=== PATIENT | male | born 1980 | race Caucasian/White ===

== ENCOUNTER 2023-07-07 08:07 | Day surgery (SDC) | payer MEDICAID, SELFPAY ==
[2023-07-07] VITALS (10 sets, daily range): BP systolic 121–152; BP diastolic 71–85; PULSE 48–66; RESP 15–23; TEMP 36.1–36.3; O2SAT 92–97; BMI 39.4
[2023-07-07] MEDS: sodium chloride 0.9% 1,000 ML 30 ML IV (08:46)
[2023-07-07] MEDS: acetaminophen 1,000 MG/100 ML PIGGYBACK 400 MG IV (08:47)
[2023-07-07] MEDS: gabapentin 300 mg Capsule PO (08:48)
--- NOTE | 2023-07-07 09:16 | W.PM.OPSUD ---
Surgery/Procedure H&P Update DATE OF PROCEDURE: July 07, 2023 DATE H&P PERFORMED: 07/02/23 CHANGES TO PREVIOUS DOCUMENTATION: No changes PREOP DIAGNOSIS: Right Achilles tendon rupture PLANNED PROCEDURE: Operation Date: 07/07/23 09:40 Proposed Procedures p Right achilles tendon repair 00917,S86.001A(Right) - Tesfaye Mayers DPM
[2023-07-07] MEDS: ceFAZolin 2,000 MG in sodium chloride 0.9% (plus) 50 ML 100 MG IV (09:32)
--- NOTE | 2023-07-07 10:09 | ANES.PREANE2 ---
Pre-Anesthetic Assessment Height/Weight: Height 1.8 m Weight 128.367 kg O2 Del Method Room Air 07/07/23 08:24 Preop Diagnosis: Right Achilles tendon rupture Operation Date: 07/07/23 09:40 Proposed Procedures p Right achilles tendon repair 07100,S86.001A(Right) - Tesfaye Mayers DPM Familial anesthetic complications: none Was Beta Jamil taken within 24 hours: N/A Was Clonidine taken within 24 hours: N/A Last intake: Intake Last Liquid Date 07/06/23 Last Liquid Time 23:59 Last Solid Date 07/06/23 Last Solid Time 18:00 Social No alcohol and No tobacco Exam alert, oriented x 3, clear to auscultation bilaterally and regular rate & rhythm Airway Submandibular: within normal limits Cervical ROM: within normal limits Mallampati: Class II Dentition: full GI Gastroesophageal Reflux Disease Metabolic Morbid Obesity Anesthetic Plan ASA status: 2 Anesthesia: General ( prone ) and Regional (specify below) (Right pop blk) Medications/Allergies Home Medications Medication Instructions Recorded Confirmed Last Taken Type famotidine 20 mg tablet (Heartburn 20 mg PO DAILY PRN Acid Reflux 07/06/23 07/07/23 07/06/23 19:00 History Prevention) hydrocodone 5 mg-acetaminophen 325 1 tab PO Q6H PRN pain #28 tabs 07/07/23 Unknown Rx mg tablet Allergies Allergy/AdvReac Type Severity Reaction Status Date / Time No Known Allergies Allergy Verified 07/07/23 08:19 Current Medications Generic Name Dose Route Start Last Admin Trade Name Freq PRN Reason Stop Dose Admin Sodium Chloride 1,000 mls @ 30 mls/hr 07/07/23 08:30 07/07/23 08:46 Sodium Chloride 0.9% IV 07/08/23 08:29 30 mls/hr .Q24H ERICK Administration PFSH Anesthesia Medical History History of hypertension Surgical History No history of previous surgery Family History Other Cancer Dementia Diabetes Hypertension Social History Smoking and tobacco/nicotine status: former use of tobacco/nicotine Second hand smoke exposure: No Alcohol intake: current Alcohol intake frequency: holidays/special occasions only Substance/Drug Use: unknown Caregiver/support person: No Lives independently: Yes Do you think of yourself as: Straight/Heterosexual Current gender identity: Male Data Anesthesia Cardiac Studies: No Data to Display Anesthesia Procedures Nerve Block Nerve Block 1: Main Anesthesia: general anesthesia Time Out Performed: Yes Consent: requested by attending/covering physician, from patient, risks and benefits reviewed and patient agrees to proceed Nerve block location: popliteal (right) Anesthesia monitors applied: pulse oximetry, EKG, BP cuff and oxygen Nerve block position: supine Anesthetic Used: ropivicaine 0.5% Amount of anesthesia used (mL): 30 Ultrasound used to: recognize landmarks Nerve Stimulator Used?: No Interscalene/Femoral BLK: 4 stimuplex 21 g needle used for position and inplane approach Injection: neg aspiration of heme Patient Tolerated Procedure: well Complications: none
--- NOTE | 2023-07-07 11:00 | W.PM.BPON ---
Date of procedure: 07/07/23 Surgeon name: Dr. Tesfaye Mayers DPM Care Transition Manager(s) name(s): None Procedure(s) performed: Primary repair right achilles tendon Description of findings: Complete rupture right achilles tendon Estimated blood loss: 10 cc Specimen(s) removed: None Post-operative diagnosis: Right achilles tendon rupture
--- NOTE | 2023-07-07 11:01 | PM.OP ---
Operative Report Date of procedure: July 07, 2023 Pre-op diagnosis: Right Achilles tendon rupture Post-op diagnosis: Same Post-op findings: Complete rupture of right Achilles tendon Procedure done: Primary repair right Achilles tendon CPT 19459 Implants: #2 FiberWire from [employer] Surgeon: Tesfaye Maeyrs DPM Estimated blood loss: 10 cc Complications: None Findings: See above Procedure: Patient is a 43-year-old male that has a history of right Achilles tendon rupture. Discussion was had with the patient regarding conservative versus surgical intervention. Patient wishes to proceed with surgery at this time. A lengthy discussion regarding the procedure, including risks and complications has been had with the patient and is noted in the recent clinic note. Written and verbal consent have been obtained. All patient questions have been answered to the patient?s satisfaction. No written or verbal guarantees have been given or implied. The patient has been NPO since midnight. The history has been reviewed and the history and physical is current. The signed consent was confirmed and placed in the patient chart. Patient imaging has been reviewed and is consistent with the diagnosis. Under mild sedation, the patient was brought into the operating room and placed on the table in the prone position. IV antibiotics were given by the anesthesia team as preoperative surgical prophylaxis. General sedation was then performed by the anesthesiateam. Patient received a popliteal block by the anesthesia department. A pneumatic tourniquet was then placed about the right thigh. The operative extremity was then prepped and draped in the usual fashion. The extremity was then elevated and exsanguinated before the tourniquet was inflated to 325 mmHg. After inflation, the following procedure was then performed. Attention was directed to the posterior aspect of the right leg overlying the Achilles tendon watershed area. A sick centimeter incision was made with a #15 blade. Blunt dissection was carried down through subcutaneous and superficial fascia to the level of the peritenon which was incised to expose the underlying Achilles tendon. There is noted to be a full-thickness rupture in the watershed area. The rupture had the appearance of an intrasubstance Z-lengthening. Hematoma was cleared from the area. The ends were noted to be able to be approximated appropriately. A #2 FiberWire from [employer] was used to perform standard Krak?w suture on both proximal and distal aspects of the rupture. These were then passed through the opposing ends of the tendon in a modified gift box fashion. Sutures were tensioned down and hand tied with the Achilles in appropriate tension. With the Achilles repaired, the end-to-end portion was augmented using 0 Vicryl. The site was then irrigated with copious amounts of sterile saline before attention was directed to closure. Deep tissue including peritenon was closed with 2-0 Vicryl followed by subcuticular closure with 3-0 Vicryl and skin closure with 3-0 nylon in horizontal mattress fashion. The incision site was dressed with Xeroform, 4 x 4 gauze, Kerlix before being placed in a well-padded below the knee posterior splint. The tourniquet was let down and good hyperemic response was noted all digits of the right foot. The patient tolerated the procedure and anesthesia well and without complication. The patient was transported from the operating room to the recovery room with vital signs stable and vascular status intact to all digits of the right foot. The patient was given both written and verbal instructions to remain nonweightbearing to the operative extremity, to keep dressings/splint clean, dry and intact and to take pain medication as directed. The patient will follow-up in the outpatient setting at their scheduled appointment. The patient was discharged with my personal number and was instructed to call if any questions or issues should arise. They were discharged home once anesthesia criteria was met.
[2023-07-07] MEDS: HYDROcodone-acetaminophen 5-325 mg Tablet 1 TAB PO (12:20)
--- NOTE | 2023-07-07 13:27 | ANE.PACU2 ---
Inpatient post-anesthesia follow up: Airway intact: Yes Vital signs: Temperature 97.3 F Pulse Rate 66 Respiratory Rate 18 Blood Pressure 124/77 Pulse Oximetry 93 Oxygen Delivery Me thod Room Air Oxygen Flow Rate 6 Fraction of Inspir ed Oxygen Hydration adequate: Yes Nausea and vomiting: No Pain level: 2 Mental status: Baseline
== END 2023-07-07 12:34 | disposition home or self-care (01) ==
PROVIDERS: Family Provider Nurse Practitioner Family; Visit Provider Podiatrist Foot & Ankle Surgery
PROC: (CPT 27650; principal; 2023-07-07 09:30)
DX: S86.011A Strain of right Achilles tendon, initial encounter (principal); W23.0XXA Caught, crushed, jammed, or pinched between moving objects, initial encounter; K21.9 Gastro-esophageal reflux disease without esophagitis; E66.01 Morbid (severe) obesity due to excess calories; Z68.39 Body mass index [BMI] 39.0-39.9, adult; I10 Essential (primary) hypertension; Z87.891 Personal history of nicotine dependence
CPT/HCPCS: 27650; J0131; J0690; J1100; J1170; J2250; J2371; J2704; J2710; J2795; J3490; J7030

== ENCOUNTER → 2024-11-13 16:14 | Outpatient (BNVA) | payer BC, MEDICAID, SELFPAY | PROVIDERS: Family Provider Nurse Practitioner Family; PCP Nurse Practitioner; Visit Provider Nurse Practitioner | DX: I10 Essential (primary) hypertension (principal) | CPT/HCPCS: 80053; 80061; 81000; 84443 ==

== ENCOUNTER 2024-11-22 15:29 | Outpatient (CLI) | payer BC, MEDICAID, SELFPAY ==
--- NOTE | 2024-11-22 15:36 | XR_ITS ---
WS: [id number] Left wrist, 3 views, 11/22/2024 Clinical Data: M77.8 - Other enthesopathies, not elsewhere classified Comparison: Left forearm, 01/15/2016 Findings: No fractures or dislocations are seen. The carpal bones are intact. There is no soft tissue swelling. The distal radius and is remarkable. There may be an old fracture of the ulnar styloid. There is a small foreign body in the subcutaneous tissue of the ventral mid left forearm. XR/XR wrist LT min 3V* [id number] Impression: No acute changes of the left wrist.
== END 2024-11-22 15:30 | disposition home or self-care (01) ==
LOC: RAD 15:35
PROVIDERS: Family Provider Nurse Practitioner Family; PCP Nurse Practitioner; Visit Provider Nurse Practitioner
DX: M77.8 Other enthesopathies, not elsewhere classified (principal); R93.6 Abnormal findings on diagnostic imaging of limbs
CPT/HCPCS: 73110

== ENCOUNTER → 2025-01-19 14:31 | Outpatient (BNVA) | payer BC, MEDICAID, SELFPAY | PROVIDERS: Family Provider Nurse Practitioner Family; PCP Nurse Practitioner | DX: S30.861A Insect bite (nonvenomous) of abdominal wall, initial encounter (principal); W57.XXXA Bitten or stung by nonvenomous insect and other nonvenomous arthropods, initial encounter | CPT/HCPCS: 86618; 86666; 86757 ==

== ENCOUNTER 2025-02-09 09:19 | Day surgery (SDC) | payer BC, MEDICAID, SELFPAY ==
[2025-02-09] VITALS (8 sets, daily range): BP systolic 95–140; BP diastolic 56–98; PULSE 46–62; RESP 15–18; TEMP 36.2–36.4; O2SAT 91–98; BMI 39.0
[2025-02-09] MEDS: sodium chloride 0.9% 1,000 ML 30 ML IV (09:40)
[2025-02-09] MEDS: ketorolac 30 mg/mL INJ IVP (09:46)
[2025-02-09] MEDS: acetaminophen 1,000 MG/100 ML PIGGYBACK 400 MG IV (09:46)
[2025-02-09] MEDS: scopolamine 1 mg PATCH 1 PATCH TRANSDERMA (09:47)
--- NOTE | 2025-02-09 11:02 | W.PM.OPSUD ---
Surgery/Procedure H&P Update DATE OF PROCEDURE: February 09, 2025 DATE H&P PERFORMED: 01/17/25 H&P UPDATE INFORMATION: I have reviewed H&P completed within last 30 days, I have examined patient prior to procedure and No changes to prior documentation PREOP DIAGNOSIS: Left wrist de Quervain's disease PRIMARY INDICATION FOR PROCEDURE: Left wrist de Quervain's disease PLANNED PROCEDURE: Operation Date: 02/09/25 11:00 Proposed Procedures p Dequervain Release(Left) - Bao Jj DO
--- NOTE | 2025-02-09 11:05 | ANES.PREANE2 ---
Pre-Anesthetic Assessment Height/Weight: Height 5 ft 11 in Weight 280 lb Temp Pulse Resp BP Pulse Ox O2 Del Method 97.6 F 61 16 140/98 98 Room Air 02/09/25 09:35 02/09/25 09:35 02/09/25 09:35 02/09/25 09:47 02/09/25 09:35 02/09/25 09:35 Preop Diagnosis: Left wrist de Quervain's disease Operation Date: 02/09/25 11:00 Proposed Procedures p Dequervain Release(Left) - Bao Jj DO Was Beta Jamil taken within 24 hours: N/A Was Clonidine taken within 24 hours: N/A Last intake: Intake Last Liquid Date 02/08/25 Last Liquid Time 23:30 Last Solid Date 02/08/25 Last Solid Time 23:30 Social No alcohol and No tobacco Exam alert, oriented x 3, clear to auscultation bilaterally and regular rate & rhythm Airway Submandibular: within normal limits Cervical ROM: within normal limits Mallampati: Class II Dentition: chipped and full Comments: Comments: Denies any loose teeth Anesthetic Plan ASA status: 3 Anesthesia: MAC Other: No prior issues with anesthesia NPO since yesterday evening History of hypertension on valsartan?HCTZ METs greater than 4 Plan for MAC anesthesia with local via surgeon Medications/Allergies Home Medications ?Medication ?Instructions ?Recorded ?Confirmed ?Last Taken ?Type famotidine 20 mg tablet (Pepcid) 20 mg PO DAILY 10/16/24 02/08/25 Unknown History valsartan 320 1 tab PO DAILY #30 tabs 12/19/24 02/08/25 02/08/25 Rx mg-hydrochlorothiazide 12.5 mg tablet (Diovan HCT) Allergies Allergy/AdvReac Type Severity Reaction Status Date / Time No Known Allergies Allergy Verified 02/09/25 09:32 [facility] Anesthesia Medical History (Updated 01/21/25 @ 22:31 by Bao Jj DO) History of hypertension Surgical History (Updated 02/08/25 @ 09:46 by Vicki Greer RN) No history of previous surgery Family History Other Cancer Dementia Diabetes Hypertension Social History Smoking and tobacco/nicotine status: never used tobacco/nicotine Second hand smoke exposure: No Alcohol intake: current Alcohol intake frequency: holidays/special occasions only Substance/Drug Use: unknown Adopted: No Caregiver/support person: No Lives independently: Yes Household members: spouse and children Housing: House Marital status: Number of children: 5 service: No Current occupational status: employed Pets and animals: Yes Do you think of yourself as: Straight/Heterosexual Current gender identity: Male
[2025-02-09] MEDS: ceFAZolin 2,000 MG in sodium chloride 0.9% (plus) 50 ML 100 MG IV (11:48)
[2025-02-09] MEDS: lidocaine 1% 10 ML INJ 5 ML XX (11:55)
[2025-02-09] MEDS: ROPivacaine 0.5% SDV 30 mL 30 MG INJECTION (11:55)
--- NOTE | 2025-02-09 12:29 | P.BOP_ITS ---
Date of Procedure: 02/09/2025 Surgeon: Bao Jj DO Mercantile Agent(s): None Procedure(s) performed: Left wrist de Quervain's release Findings of the procedure(s): Patient underwent procedure as planned without issue complications Estimated blood loss: 3 mL Specimen(s) removed: None Post-operative diagnosis: Left wrist de Quervain's disease
--- NOTE | 2025-02-09 12:30 | P.OP_ITS ---
Operative Report Date of procedure: February 09, 2025 Surgeon: Bao Jj DO Procedure: Preoperative diagnosis: Left wrist de Quervain's disease Post-op diagnosis: Same Procedure done: Left?wrist de Quervain's release Surgeon: Bao Jj DO Estimated blood loss: 3cc Tourniquet time 8mins Complications: None Condition: stable Disposition: same day Brief History: Patient's been seen and worked up in the outpatient setting and findings consistent with preoperative diagnosis of Left wrist de Quervain's disease.? He is failed conservative treatment.? Continues to have severe pain as well.? We talked about treatment options nonoperative versus operative intervention.? ?Patient understands the risk benefits complication alternatives of surgical nonsurgical treatment options.? Understanding his risks with surgery he elects proceed with surgical intervention.? Consent obtained in the preoperative holding area.? Here today to proceed with surgical intervention for left wrist de Quervain's release all questions answered. Procedure: Patient was seen and evaluated in the preoperative holding area.? Consent was reviewed and signed with patient.? Seen evaluated by Anesthesia Department.? Once cleared for surgery was brought back to the operative suite.? Placed in supine position on the OR table all bony prominences well-padded patient properly secured to the bed.? Patient's Left arm was then placed to the arm board.? A nonsterile tourniquet applied to the Left upper arm.? Patient's Left upper extremity was then prepped and draped in standard orthopedic fashion.? Final timeout performed.? Patient received appropriate preoperative antibiotics. Esmarch tourniquet was used exsanguinate the Left upper extremity tourniquet insufflated to 250 mmHg. Under sterile aseptic technique local anesthesia was injected around the preplanned incision site over the left radial aspect of the wrist directly over the first dorsal compartment. I then proceeded with the Left wrist de Quervain's release.? I marked out the first dorsal compartment a small longitudinal incision was made directly over this.? Sharp scalpel incision was made through skin only switch to Littler dissection scissors and protected the superficial branch of the radial nerve as well as neurovascular structures.? I then had direct visualization of the first dorsal compartment sharp scalpel incision I used to then simply incise the first dorsal compartment I switched dissection scissors to release this both proximally and distally to its entirety. I then subsequently used a rag nail and mobilized each tendon that verify no areas of entrapment and this completed the left wrist de Quervain's release. This point thorough irrigation was performed.? Tourniquet deflated hemostasis satisfactory with bipolar.? I then subsequently closed the incision with interrupted nylon suture.? Xeroform 4 x 4's, Kerlix and an Alonzo wrap was applied for a bulky soft dressing.? Patient was then subsequently awakened from anesthesia and taken to PACU in stable condition tolerated procedure without issues. Disposition: Patient taken back in stable condition recovering well.? Patient will receive appropriate discharge instruction as well as pain medication postoperatively.? Patient to follow-up with me in the office in 2 weeks.? Patient understands that any questions or concerns and contact the office.? All questions answered.
--- NOTE | 2025-02-09 13:15 | ANE.PACU2 ---
Inpatient post-anesthesia follow up: Airway intact: Yes Vital signs: Temperature 97.1 F Pulse Rate 46 Respiratory Rate 18 Blood Pressure 110/77 Pulse Oximetry 94 Oxygen Delivery Me thod Room Air Oxygen Flow Rate 6 Fraction of Inspir ed Oxygen Hydration adequate: Yes Nausea and vomiting: No Pain level: 1 Mental status: Baseline
== END 2025-02-09 13:15 | disposition home or self-care (01) ==
PROVIDERS: PCP Nurse Practitioner; Visit Provider Student in an Organized Health Care Education/Training Program
PROC: (CPT 25000; principal; 2025-02-09 10:50)
DX: M65.4 Radial styloid tenosynovitis [de Quervain] (principal); I10 Essential (primary) hypertension
CPT/HCPCS: 25000; J0131; J0690; J1885; J2405; J2704; J2795; J3010; J7030; J9999

== ENCOUNTER 2025-03-28 20:00 | Outpatient (CLI) | payer BC, MEDICAID, SELFPAY | END 2025-03-28 20:01 | disposition home or self-care (01) | LOC: SLEEP 23:09 | PROVIDERS: PCP Nurse Practitioner; Visit Provider Internal Medicine Pulmonary Disease | DX: G47.33 Obstructive sleep apnea (adult) (pediatric) (principal) | CPT/HCPCS: 95810 ==

== ENCOUNTER 2025-08-25 11:36 | Emergency (ER) | payer BC, MEDICAID, SELFPAY ==
[2025-08-25 11:39] VITALS: BP 145/93; PULSE 76; RESP 18; TEMP 36.2; O2SAT 98
--- OUTSIDE RECORDS SUMMARY | 2025-08-25 11:41 | XMS_ITS | Clinical Summary ---
Author Organization [facility] Address [address] [place] [address] Phone Care Team Providers Care Die Developer Name Role Phone Unavailable Primary Care Provider Unavailabl e Allergies No known active allergies Medications ranitidine (ZANTAC) 150 mg Oral tablet Take 150 mg by mouth 2 times daily. Active calcium carbonate (TUMS) Oral Chew Take 250 mg by mouth daily with breakfast. Active SIMETHICONE (GAS-X ORAL) Take by mouth. Active Active Problems No known active problems Social History Tobacco Use Types Packs/Day Years Used Date Smoking Tobacco: Former Cigarettes 1 Q uit: 10/14/2012 Smokeless Tobacco: Current Chew Alcohol Use Standard Drinks/Week Comments Yes 0 (1 standard drink = 0.6 oz pur e alcohol) occasional Sex and Gender Information Value Date Recorded Sex Assigned at Not on file Legal Sex Male 6:57 PM [employer] Gender Identity Not on file Sexual Orientation Not on file Occupation Industry Job Start Date Job End Date Not on file Not on file Not on file Not on file Last Filed Vital Signs Vital Sign Reading Time Taken Comments Blood Pressure 164/99 11/11/2012 7:25 PM [employer] Pulse 81 11/11/2012 7:25 PM [employer] Temperature 36.5 C (97.7 F) 11/11/2012 5:22 PM [employer] Respiratory Rate 20 11/11/2012 7:25 PM [employer] Oxygen Saturation 94% 11/11/2012 7:25 PM [employer] Inhaled Oxygen Concentration - - Weight 112.7 kg (248 lb 6.4 oz) 11/11/2012 5:22 PM [employer] Height 180.7 cm (5' 11.15 ) 11/11/2012 5:[address] Body Mass Index 34.5 11/11/2012 5:22 PM [employer] Plan of Treatment Health Maintenance Due Date Last Done Comments DTAP/TDAP/TD VACCINES (1 - Tdap) 02/21/2000 HEPATITIS B VACCINES (1 of 3 - 19+ 3-dose series) 02/11 INFLUENZA VACCINE (#1) 2025 HPV VACCINES (No Doses Required) Completed
--- OUTSIDE RECORDS SUMMARY | 2025-08-25 11:41 | XMS_ITS | Clinical Summary ---
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
--- NOTE | 2025-08-25 11:48 | XRR_ITS ---
PROCEDURE INFORMATION: Exam: XR Right Hand Exam date and time: 08/25/2025 12:05 PM Age: 45 years old Clinical indication: Injury or trauma; Other: Crushed finger; Crushing; Hand; Right; Additional info: Crushed 5th digit TECHNIQUE: Imaging protocol: Radiologic exam of the right hand. Views: 1 or 2 views. COMPARISON: No relevant prior studies available. FINDINGS: Bones/joints: Acute comminuted fracture involving the tuft of the distal phalanx of the fifth digit. Fracture is minimally displaced. Soft tissues: Normal. XR/XR hand RT 2V [id number] IMPRESSION: Fracture of the tuft of the 5th distal phalanx.
--- NOTE | 2025-08-25 12:17 | W.ED.EXTPRO ---
HPI - Extremity Problem General: Chief complaint: Extremity Injury, Upper Stated complaint: Rt pinkie crushing inj Time Seen by Provider: 08/25/25 11:55 Source: patient Mode of arrival: ambulatory Limitations: no limitations History of Present Illness: Patient is a 45-year-old male presents emergency department after injuring his right pinky finger while moving a hydraulic post. States that pinky was smashed, causing laceration and lifting his fingernail. States he has no pain at this time as it feels numb. He has intact movement however and motor function. Tetanus not up-to-date. Bleeding controlled on arrival he is not on any blood thinner. No other symptoms at this time. MD Complaint: other (Right pinky injury) Onset (ago): hour(s) (1.5) Location: right and upper extremity Associated symptoms: Deny chest pain, fever(s) or rash Related Data Previous Rx's ?Medication ?Instructions ?Recorded CPAP machine and supplies #1 ea 06/14/25 diltiazem HCl 120 mg 120 mg PO QAM #30 caps 06/14/25 capsule,extended release 24 hr (Cartia XT) famotidine 20 mg tablet (Pepcid) 20 mg PO DAILY #30 tabs 06/14/25 valsartan 320 1 tab PO DAILY #30 tabs 06/14/25 mg-hydrochlorothiazide 12.5 mg tablet (Diovan HCT) cephalexin 500 mg capsule 500 mg PO Q6H 5 days #20 caps 08/25/25 hydrocodone 7.5 mg-acetaminophen 1 tab PO Q8H PRN pain #20 tabs 08/25/25 325 mg tablet Allergies Allergy/AdvReac Type Severity Reaction Status Date / Time No Known Allergies Allergy Verified 08/25/25 11:43 Review of Systems General: Reports: 10 or more systems reviewed and unremarkable except in HPI and below Const: Denies: fever(s) or chills Card: Denies: chest pain Resp: Denies: dyspnea GI: Denies: abdominal pain, nausea, vomiting or diarrhea Musc: Denies: extremity pain or joint pain Skin/Breast: Reports: new lesions (Laceration right pinky finger involving fingernail); Denies: rash, skin pain or skin tenderness Neuro: Denies: headache(s) PFSH ED PFSH: Medical History ANAYA on CPAP History of hypertension Surgical History No history of previous surgery Family History Other Cancer Dementia Diabetes Hypertension Social History Smoking and tobacco/nicotine status: never used tobacco/nicotine Second hand smoke exposure: No Alcohol intake: current Alcohol intake frequency: holidays/special occasions only Substance/Drug Use: unknown Adopted: No Caregiver/support person: No Lives independently: Yes Household members: spouse and children Housing: House Marital status: Number of children: 5 service: No Current occupational status: employed Pets and animals: Yes Do you think of yourself as: Straight/Heterosexual Current gender identity: Male Physical Exam Const: COMMON NORMALS: no acute distress, patient oriented x3, no limitations, healthy appearing, alert and well nourished HENMT: COMMON NORMALS: normocephalic and atraumatic HEAD & SCALP: normocephalic and atraumatic Neck/C-Spine: COMMON NORMALS: full ROM, supple and no meningeal signs Extremity: COMMON NORMALS: full ROM NARRATIVE EXTREMITY EXAM: Full range of motion of the right pinky finger, see skin examination Neuro: COMMON NORMALS: patient oriented x3, moves all extremities, no focal motor deficits and no sensory deficits noted SENSORIUM/ORIENTATION: Yes alert MENINGEAL SIGNS: Yes no meningeal signs Skin: NARRATIVE SKIN EXAM: 2 cm Laceration to dorsal aspect of right pinky finger involving the nailbed and there is avulsion of the nail at the matrix Procedures Laceration Laceration 1: Site: hand Side (If applicable): right (little finger) Size (cm): 2 Description: linear, clean and other (involves nail bed, nail avulsed) Depth: simple, single layer Pre-repair: wound explored, irrigated extensively and deep structures intact Skin layer closed with: nylon Size (cm): 5-0 Number of sutures: 6 Technique: simple, interrupted Subcutaneous layer closed with: vicryl (nail bed) Size: 4-0 Number of sutures: 3 Technique: simple, interrupted Nerve Block Nerve Block 1: Local Anesthetic: lidocaine 2% and with epi Amount of anesthesia used (mL): 10 Side: right Nerve Blocks: digital Procedure Successful: Yes Patient Tolerated Procedure: well Complications: none Course Vital Signs: Vital signs: Vital Signs Temperature 97.1 F L 08/25/25 11:39 Pulse Rate 76 08/25/25 11:39 Respiratory Rate 18 08/25/25 11:39 Blood Pressure 145/93 08/25/25 11:39 Pulse Oximetry 98 08/25/25 11:39 Oxygen Delivery Me thod Room Air 08/25/25 11:39 MDM - Extremity (Nontraumatic) Medical Decision Making Patient presented after having his right little finger smashed while working with hydraulic posts. Nail avulsed, however was able to recover the nail, clean it, and reapproximate the nail matrix with the proximal edge of the nail. There was x-ray findings of distal tuft fracture, and skin sutures placed as well as dissolvable for the nailbed prior to replacement of proximal portion of the nail. Sensations and motor function remained intact, he tolerated the procedure overall well and he will be started on prophylactic antibiotics for the extent of the wound. His tetanus is also updated. Irrigated thoroughly here in the emergency department, was soaked in neural saline and flushes used for irrigation as well. Medication sent to pharmacy he is informed on signs and symptoms to watch for that warrant a return to the ED and also be referred to orthopedics for reevaluation of wound and fracture. Lab Data Radiology Impressions Hand X-Ray 08/25/25 11:48 IMPRESSION: Fracture of the tuft of the 5th distal phalanx. All radiology interpretation(s) finalized by discharge Discharge Plan Discharge Patient Disposition: Home Clinical Impression: Laceration of right little finger Qualifiers: Encounter type: initial encounter Damage to nail status: with damage Foreign body presence: without foreign body Qualified Code(s): S61.316A - Laceration without foreign body of right little finger with damage to nail, initial encounter Fracture of distal phalanx of right little finger Qualifiers: Encounter type: initial encounter Fracture type: open Fracture alignment: nondisplaced Qualified Code(s): S62.666B - Nondisplaced fracture of distal phalanx of right little finger, initial encounter for open fracture Condition: Stable Prescriptions: New hydrocodone-acetaminophen 7.5-325 mg tablet 1 tab PO Q8H PRN (Reason: pain) Qty: 20 0RF cephalexin 500 mg capsule 500 mg PO Q6H 5 Days Qty: 20 0RF No Action diltiazem HCl [Cartia XT] 120 mg capsule,extended release 24hr 120 mg PO QAM Qty: 30 5RF valsartan-hydrochlorothiazide [Diovan HCT] 320-12.5 mg tablet 1 tab PO DAILY Qty: 30 5RF famotidine [Pepcid] 20 mg tablet 20 mg PO DAILY Qty: 30 5RF (DME) CPAP machine and supplies See Rx Instructions .ROUTE .MEDSUPPLY Qty: 1 0RF Rx Instructions: auto titration 6-16 Discharge Orders: Discharge ED (Routine); Ordered 08/25/25 Ordered By: Tesfaye Hodges Referrals: Jeff Anderson, RAINA [Primary Care Provider, [facility]] Patient Instructions: Patient Portal & Angel Instructions Activity Restrictions/Additional Instructions: Discharge Instructions Injury Summary You had an injury to your right little finger that included a cut through the nail bed with removal of the nail. The nail was removed, the nail bed was repaired with dissolvable stitches, and a small piece of the cleaned nail was placed back to help maintain the space for new nail growth. You also have a small fracture at the tip of the finger bone (tuft fracture). Skin stitches were placed and will need to be removed in about 7 days. Wound Care - Keep the dressing clean and dry for the first 24-48 hours. - After 48 hours, you may gently wash the area but do not scrub or soak the finger. - Change the dressing daily or if it becomes wet or dirty. Use a clean, non-stick bandage. - Keep your hand elevated above the level of your heart as much as possible, especially in the first few days, to reduce swelling. Michael Taping - Keep the michael tape in place to protect your injured finger. The tape helps immobilize the finger and prevents further injury. - You may remove and reapply the michael tape when changing dressings, but keep the finger supported at all times. Medications - Cephalexin (antibiotic): Take as prescribed to prevent infection. Finish the entire course even if you feel better. - Hydrocodone-acetaminophen 7.5-325 mg: Take as needed for pain. Do not drive or operate machinery while taking this medication. Do not drink alcohol while taking this pain medication. Activity Restrictions - Avoid using your injured finger for gripping, pinching, or any activities that could stress the repair. - Avoid heavy lifting or strenuous activities with the injured hand until cleared by your doctor. - You may return to light activities as tolerated, but protect the finger from further injury. Warning Signs - Seek Medical Attention If You Experience: - Increasing pain, redness, warmth, or swelling around the wound - Pus or foul-smelling drainage from the wound - Fever over 100.4?F (38?C) - Numbness or tingling that worsens - Inability to move the finger - The dressing becomes soaked with blood Follow-Up Care - Suture removal: Return in approximately 7 days to have your skin stitches removed. - Orthopedic referral: You will be contacted to schedule an appointment with an patient access specialist for evaluation and management of your finger fracture. - Continue michael taping until instructed otherwise by your orthopedic surgeon. Tetanus Vaccination Your tetanus vaccination was updated today and you are protected against tetanus. Nail Regrowth It may take 3-6 months for a new nail to grow back completely. The new nail may look different from your other nails, but this often improves over time. Questions or Concerns If you have any questions or concerns about your injury or recovery, please contact your healthcare provider. Print Language: Guyanese Coding Level of Care Code ED [employer] Operator for Marlin Stephenson
[2025-08-25] MEDS: tetanus-dipt-pertussis 0.5 mL SDV IM (12:42)
[2025-08-25] MEDS: lidocaine 2% INJ 20 mL INJECTION (12:42)
== END 2025-08-25 14:32 | disposition home or self-care (01) ==
PROVIDERS: Emergency Provider Physician Assistant; PCP Nurse Practitioner
DX: S62.666B Nondisplaced fracture of distal phalanx of right little finger, initial encounter for open fracture (principal); I10 Essential (primary) hypertension; X58.XXXA Exposure to other specified factors, initial encounter
CPT/HCPCS: 12041; 73120; 90715; 99283; J9999